=== PATIENT | male | born 1945 | race Caucasian/White ===

== ENCOUNTER 2022-05-29 16:37 | Inpatient (IN) | payer MEDICARE, SELFPAY ==
[2022-05-29] MEDS ORDERED: Vancomycin 1 GM/200 ML BAG ONE (17:26)
[2022-05-29] MEDS ORDERED: hydrALAZINE 20 MG/ML VIAL SLOW IVP PRN (19:28)
[2022-05-29] MEDS ORDERED: Electrolyte Replacement Protocol 1 EACH FS PRN (19:30)
[2022-05-29] MEDS ORDERED: Acetaminophen 325 MG TAB PO PRN (19:31)
[2022-05-29] MEDS ORDERED: Ondansetron PF 4 MG/2 ML Vial IVP PRN (19:31)
[2022-05-29] MEDS ORDERED: Ondansetron ODT 4 MG TAB PO PRN (19:31)
[2022-05-29 19:34] VITALS: BMI 28.5
[2022-05-29] MEDS ORDERED: Furosemide 40 MG/4 ML VIAL SLOW IVP SCH (19:45)
[2022-05-29] MEDS ORDERED: Vancomycin 1 GM in Premix Bag 1 BAG IVPB SCH (19:45)
[2022-05-29] MEDS: Pantoprazole 40 MG VIAL IVP SCH (20:10)
[2022-05-29] MEDS: Cefepime 1 GM in Sodium Chloride 0.9% 100 ML IVPB SCH (21:47)
[2022-05-29] MEDS ORDERED: tiZANidine HCl 4 MG TAB PO PRN (22:04)
[2022-05-29 23:19] LABS: HBSAg Index 0.35 S/CO (0-0.99); Hep B Surf Ag Non-Reactive S/CO (NonReactive); Hep C IgG Ab Non-Reactive (NonReactive); Hep C Index 0.13 S/CO (0-0.79)
[2022-05-29 23:20] LABS: HBCM Index 0.06 S/CO (0-0.79); Hep A IgM AB Non-Reactive (NonReactive); Hep A IgM S/CO 0.22 S/CO (0-0.79); Hepatitis B Core IgM Abs Non-Reactive (NonReactive)
[2022-05-29 23:21] LABS: Hemoglobin 9.5 g/dL (14.0-18.0)
[2022-05-30] MEDS ORDERED: Morphine 2 MG/ML VIAL SLOW IVP SCH (00:45)
[2022-05-30] MEDS ORDERED: Albumin 25% 25 GM/100 ML BOT IVPB SCH ×2 (01:30→13:00)
[2022-05-30 02:19] LABS: #Lymphocytes 1.1 thou/uL (1.20-3.40); #Monocytes 0.9 thou/uL (0.11-0.59); #Neutrophils 9.3 thou/uL (1.40-6.50); %Basophils 0.1 % (0.0-1.0); %Eosinophils 0.1 % (0.0-10.0); %Lymphocytes 9.3 % (21.0-51.0); %Monocytes 8.2 % (0.0-10.0); %Neutrophils 82.2 % (42.0-75.0); Hemoglobin 9.8 g/dL (14.0-18.0); Mean Corpuscular HGB CONC 32.8 g/dL (32.0-36.0); Mean Platelet Volume 8.1 fL (7.4-10.4); Platelet Count 113 thou/uL (130-400); RBC Distribution Width 12.3 % (11.5-14.5); White Blood Cell (WBC) Count 11.4 thou/uL (4.8-10.8)
[2022-05-30 02:35] LABS: Lactic Acid 3.7 mmol/L (0.5-2.2)
[2022-05-30 02:39] LABS: Magnesium 1.6 mg/dL (1.6-2.6)
[2022-05-30 02:51] LABS: ALT (SGPT) 13 U/L (8-55); AST (SGOT) 37 U/L (5-34); Albumin 2.4 g/dL (3.4-4.8); Alkaline Phosphatase 77 U/L (40-110); Anion Gap 15 mmol/L (10-20); BUN (Urea Nitrogen) 15 mg/dL (8.4-25.7); Bilirubin, Total 5.9 mg/dL (0.2-1.2); Calc. Creatinine Clearance 65 mL/min (70-130); Calcium 7.7 mg/dL (7.8-10.44); Carbon Dioxide 20 mmol/L (23-31); Chloride 99 mmol/L (98-107); Estimated GFR 56; Globulin 3.2 g/dL (2.4-3.5); Glucose 86 mg/dL (83-110); Magnesium 1.6 mg/dL (1.6-2.6); Potassium 3.3 mmol/L (3.5-5.1); Protein, Total 5.6 g/dL (5.8-8.1); Sodium 131 mmol/L (136-145)
[2022-05-30 03:08] LABS: INR-International Normal Ratio 1.9; Prothrombin Time 22.5 sec (12.0-14.7)
[2022-05-30 03:24] LABS: Band 33 % (5-11); Large Platelets SLIGHT; Lymphocytes 8 % (21-51); MDiff Complete? YES; Macrocytosis SLIGHT = 6-15 cells (100X) (0-5/hpf); Monocytes 3 % (0-10); Neutrophil 56 % (42-75); Ovalocytes SLIGHT = 2-5 cells (100X) (0-1/hpf); Platelet Morphology Comment Appears Decreased
[2022-05-30] MEDS ORDERED: Magnesium 2 GM/50 ML(in water) 2 GM in Premix Bag 1 BAG IVPB SCH (08:00)
[2022-05-30] MEDS: Furosemide 40 MG/4 ML VIAL SLOW IVP SCH (09:32)
[2022-05-30] MEDS: Potassium Chloride 20 MEQ in Premix Bag 1 BAG IVPB SCH ×2 (09:33→12:42)
[2022-05-30] MEDS: Cefepime 1 GM in Sodium Chloride 0.9% 100 ML IVPB SCH ×2 (09:33→20:11)
[2022-05-30] MEDS: Vancomycin 1 GM in Premix Bag 1 BAG IVPB SCH ×2 (09:34→20:19)
[2022-05-30] MEDS: Pantoprazole 40 MG VIAL IVP SCH ×2 (09:34→20:11)
[2022-05-30] MEDS: Albumin 25% 25 GM/100 ML BOT IVPB SCH ×3 (11:02→14:54)
[2022-05-30] MEDS: Midodrine HCl 5 MG TAB PO SCH (20:11)
[2022-05-31 04:56] LABS: #Eosinphils 0.3 thou/uL (0.0-0.7); #Lymphocytes 1.2 thou/uL (1.20-3.40); #Neutrophils 6.7 thou/uL (1.40-6.50); %Basophils 0.3 % (0.0-1.0); %Eosinophils 3.1 % (0.0-10.0); %Lymphocytes 12.8 % (21.0-51.0); %Monocytes 11.1 % (0.0-10.0); %Neutrophils 72.6 % (42.0-75.0); Hemoglobin 8.2 g/dL (14.0-18.0); MDiff Complete? YES; Macrocytosis SLIGHT = 6-15 cells (100X) (0-5/hpf); Mean Corpuscular HGB CONC 32.1 g/dL (32.0-36.0); Mean Corpuscular Hemoglobin 35.8 pg (27.0-31.0); Mean Platelet Volume 8.8 fL (7.4-10.4); Platelet Count 89 thou/uL (130-400); Platelet Morphology Comment Appears Decreased; RBC Distribution Width 12.6 % (11.5-14.5); White Blood Cell (WBC) Count 9.2 thou/uL (4.8-10.8)
[2022-05-31 06:02] LABS: ALT (SGPT) 12 U/L (8-55); AST (SGOT) 55 U/L (5-34); Albumin 2.5 g/dL (3.4-4.8); Alkaline Phosphatase 43 U/L (40-110); Anion Gap 13 mmol/L (10-20); BUN (Urea Nitrogen) 23 mg/dL (8.4-25.7); Bilirubin, Total 4.7 mg/dL (0.2-1.2); Calc. Creatinine Clearance 36 mL/min (70-130); Calcium 7.5 mg/dL (7.8-10.44); Carbon Dioxide 21 mmol/L (23-31); Chloride 101 mmol/L (98-107); Estimated GFR 28; Globulin 2.2 g/dL (2.4-3.5); Glucose 86 mg/dL (83-110); Potassium 3.7 mmol/L (3.5-5.1); Protein, Total 4.7 g/dL (5.8-8.1); Sodium 131 mmol/L (136-145)
[2022-05-31 08:50] LABS: Vancomycin, Trough 30.3 ug/mL
[2022-05-31] MEDS: Vancomycin 1 GM in Premix Bag 1 BAG IVPB SCH (09:21)
[2022-05-31] MEDS: Cefepime 1 GM in Sodium Chloride 0.9% 100 ML IVPB SCH ×2 (09:50→19:57)
[2022-05-31] MEDS: Pantoprazole 40 MG VIAL IVP SCH ×2 (09:51→19:58)
[2022-05-31] MEDS: Furosemide 40 MG/4 ML VIAL SLOW IVP SCH ×2 (09:51→09:54)
[2022-05-31] MEDS: Midodrine HCl 5 MG TAB PO SCH ×3 (09:51→19:58)
[2022-05-31] MEDS ORDERED: Sodium Chloride 0.9% 500 ML IV SCH (10:15)
[2022-05-31] MEDS ORDERED: Lidocaine 1% PF 5 ML VIAL ONE (10:40)
[2022-05-31] MEDS ORDERED: Sodium Bicarbonate 2.5 MEQ/5 ML VIAL ONE (10:40)
[2022-05-31] MEDS ORDERED: Phytonadione 10 MG/ML AMP SC SCH (11:15)
[2022-05-31] MEDS ORDERED: Vancomycin HCl 500 MG in Sodium Chloride 0.9% 100 ML IVPB SCH (11:30)
[2022-05-31 12:10] LABS: RBC Count-Automated (BF) 1819 /cu.mm; WBC/Nucleated-Auto (BF) 2297 /cu.mm
[2022-05-31 12:24] LABS: BF Color Yellow; Body Fluid Source Ascites Body Fluid; Clarity Hazy (Clear); Tube # EDTA
[2022-05-31 12:26] LABS: BF Segmented Neutrophils 46 %; Cell Count Non Hematic 37 %; Eosinophils 2 %; Lymphocytes 11 %
[2022-05-31] MEDS ORDERED: Octreotide Acetate 100 MCG/ML VIAL SC SCH (14:00)
[2022-05-31] MEDS ORDERED: Sodium Chloride 0.9% 1,000 ML IV SCH (16:00)
[2022-05-31] MEDS ORDERED: NOREPINEPHRINE 8 MG/250 ML-D5W 250 ML IVPB SCH (16:00)
[2022-05-31] MEDS ORDERED: Octreotide Acetate 50 MCG/ML AMP SC SCH (16:30)
[2022-05-31] MEDS: Albumin 25% 25 GM/100 ML BOT IVPB SCH (19:54)
[2022-05-31] MEDS: Octreotide Acetate 50 MCG/ML AMP SC SCH (21:22)
[2022-05-31 21:23] LABS: Bacteria/HPF 1+ HPF (None Seen); Bilirubin Negative (Negative); Blood, Urine 3+ (Negative); Clarity Extra Turbid (Clear); Glucose, Urine (Dipstick) Normal (Negative); Ketone, Urine Negative (Negative); Leukocyte 75 Leu/uL (Negative); Nitrite Negative (Negative); Protein, Urine (Dipstick) 100 mg/dL (Neg-Trace); Specific Gravity, Urine 1.012 (1.002-1.036); Squamous Epithelial None Seen HPF (0-3); Urobilinogen Normal mg/dL (Less than 2); pH, Urine 5.5 (5.0-9.0)
[2022-05-31 21:24] LABS: RBC/HPF Greater than 50 HPF (0-3); Urine Culture Reflex Yes Yes
[2022-05-31 21:52] LABS: Creatinine, Urine 110.14 mg/dL (63-166); Sodium, Urine 100 mmol/L (Not Available); Urea Nitrogen, Random Urine Less than 40 mg/dl
[2022-05-31 22:04] LABS: Protein, Urine Random Quant 371 mg/dL (1-14)
[2022-06-01] MEDS: Albumin 25% 25 GM/100 ML BOT IVPB SCH ×5 (00:06→22:40)
[2022-06-01 04:34] LABS: #Eosinphils 0.4 thou/uL (0.0-0.7); #Lymphocytes 1.3 thou/uL (1.20-3.40); %Basophils 0.1 % (0.0-1.0); %Eosinophils 4.4 % (0.0-10.0); %Lymphocytes 13.4 % (21.0-51.0); %Monocytes 10.6 % (0.0-10.0); %Neutrophils 71.4 % (42.0-75.0); Hemoglobin 8.2 g/dL (14.0-18.0); Mean Corpuscular HGB CONC 33.5 g/dL (32.0-36.0); Mean Corpuscular Hemoglobin 35.8 pg (27.0-31.0); Mean Platelet Volume 8.4 fL (7.4-10.4); Platelet Count 102 thou/uL (130-400); RBC Distribution Width 12.4 % (11.5-14.5); White Blood Cell (WBC) Count 9.8 thou/uL (4.8-10.8)
[2022-06-01 04:43] LABS: Anion Gap 15 mmol/L (10-20); BUN (Urea Nitrogen) 34 mg/dL (8.4-25.7); CRP (Inflammatory) 10.32 mg/dL (= or < 0.5); Calc. Creatinine Clearance 26 mL/min (70-130); Calcium 7.7 mg/dL (7.8-10.44); Carbon Dioxide 22 mmol/L (23-31); Chloride 97 mmol/L (98-107); Estimated GFR 20; Glucose 101 mg/dL (83-110); Potassium 3.8 mmol/L (3.5-5.1); Sodium 130 mmol/L (136-145)
[2022-06-01 04:45] LABS: Vancomycin, Random 25.1 ug/mL (See Comment)
[2022-06-01] MEDS: Octreotide Acetate 50 MCG/ML AMP SC SCH ×3 (05:14→22:26)
[2022-06-01] MEDS ORDERED: Lidocaine 1% PF 5 ML VIAL ONE (08:11)
[2022-06-01] MEDS ORDERED: PROPOFOL 200 MG/20 ML VIAL ONE (08:11)
[2022-06-01] MEDS ORDERED: ePHEDrine 50 MG/ML VIAL ONE (08:11)
[2022-06-01] MEDS: Pantoprazole 40 MG VIAL IVP SCH ×2 (10:10→21:21)
[2022-06-01] MEDS: Midodrine HCl 5 MG TAB PO SCH ×3 (10:10→21:20)
[2022-06-01] MEDS: Cefepime 1 GM in Sodium Chloride 0.9% 100 ML IVPB SCH (10:10)
[2022-06-02] MEDS ORDERED: Nitroglycerin 0.4 MG TAB (25 Tab Bottle) SL PRN (01:20)
[2022-06-02 01:44] LABS: Anion Gap 18 mmol/L (10-20); BUN (Urea Nitrogen) 43 mg/dL (8.4-25.7); Calc. Creatinine Clearance 22 mL/min (70-130); Calcium 7.6 mg/dL (7.8-10.44); Carbon Dioxide 18 mmol/L (23-31); Chloride 99 mmol/L (98-107); Estimated GFR 17; Glucose 92 mg/dL (83-110); Magnesium 2.1 mg/dL (1.6-2.6); Phosphorus 4.3 mg/dL (2.3-4.7); Sodium 131 mmol/L (136-145)
[2022-06-02 01:49] LABS: Troponin I 0.183 ng/mL (< 0.028)
[2022-06-02 05:04] LABS: ALT (SGPT) 12 U/L (8-55); AST (SGOT) 30 U/L (5-34); Albumin 3.1 g/dL (3.4-4.8); Alkaline Phosphatase 38 U/L (40-110); Anion Gap 18 mmol/L (10-20); BUN (Urea Nitrogen) 46 mg/dL (8.4-25.7); Bilirubin, Total 6.5 mg/dL (0.2-1.2); Calc. Creatinine Clearance 22 mL/min (70-130); Calcium 7.8 mg/dL (7.8-10.44); Carbon Dioxide 19 mmol/L (23-31); Chloride 99 mmol/L (98-107); Estimated GFR 16; Globulin 1.8 g/dL (2.4-3.5); Glucose 93 mg/dL (83-110); Iron 50 ug/dL (65-175); Iron Binding Capacity, Total 71 mcg/dL (261-462); Potassium 3.9 mmol/L (3.5-5.1); Protein, Total 4.9 g/dL (5.8-8.1); Sodium 132 mmol/L (136-145)
[2022-06-02] MEDS: Albumin 25% 25 GM/100 ML BOT IVPB SCH ×4 (05:43→23:55)
[2022-06-02] MEDS: Octreotide Acetate 100 MCG/ML VIAL SC SCH ×3 (06:44→21:22)
[2022-06-02] MEDS: Midodrine HCl 5 MG TAB PO SCH ×3 (08:32→21:23)
[2022-06-02] MEDS: Pantoprazole 40 MG VIAL IVP SCH ×2 (08:32→21:23)
[2022-06-02] MEDS: Cefepime 1 GM in Sodium Chloride 0.9% 100 ML IVPB SCH (08:32)
[2022-06-02] MEDS ORDERED: Albumin 25% 25 GM/100 ML BOT IVPB SCH (11:00)
[2022-06-02] MEDS ORDERED: Furosemide 40 MG/4 ML VIAL SLOW IVP SCH (11:00)
[2022-06-02] MEDS: Metoclopramide HCl 10 MG/2 ML VIAL IVP SCH ×3 (11:39→23:55)
[2022-06-03] MEDS: Octreotide Acetate 100 MCG/ML VIAL SC SCH ×2 (05:27→15:04)
[2022-06-03] MEDS: Albumin 25% 25 GM/100 ML BOT IVPB SCH (05:27)
[2022-06-03] MEDS: Metoclopramide HCl 10 MG/2 ML VIAL IVP SCH ×3 (05:27→16:36)
[2022-06-03 06:02] LABS: Prothrombin Time 22.9 sec (12.0-14.7)
[2022-06-03 06:03] LABS: PTT 44.9 sec (22.9-36.1)
[2022-06-03 06:04] LABS: ALT (SGPT) 14 U/L (8-55); AST (SGOT) 34 U/L (5-34); Albumin 3.5 g/dL (3.4-4.8); Alkaline Phosphatase 43 U/L (40-110); Anion Gap 20 mmol/L (10-20); BUN (Urea Nitrogen) 52 mg/dL (8.4-25.7); Bilirubin, Total 8.3 mg/dL (0.2-1.2); Calc. Creatinine Clearance 23 mL/min (70-130); Calcium 8.2 mg/dL (7.8-10.44); Carbon Dioxide 18 mmol/L (23-31); Chloride 100 mmol/L (98-107); Estimated GFR 17; Globulin 1.8 g/dL (2.4-3.5); Glucose 94 mg/dL (83-110); Potassium 3.9 mmol/L (3.5-5.1); Protein, Total 5.3 g/dL (5.8-8.1); Sodium 134 mmol/L (136-145)
[2022-06-03 07:30] LABS: Hemoglobin 8.7 g/dL (14.0-18.0); Mean Corpuscular HGB CONC 32.9 g/dL (32.0-36.0); Mean Corpuscular Hemoglobin 36.2 pg (27.0-31.0); Mean Platelet Volume 8.1 fL (7.4-10.4); Platelet Count 117 thou/uL (130-400); RBC Distribution Width 12.5 % (11.5-14.5); White Blood Cell (WBC) Count 10.8 thou/uL (4.8-10.8)
[2022-06-03 07:39] LABS: #Basophils 0.1 thou/uL (0.0-0.2); #Eosinphils 0.3 thou/uL (0.0-0.7); #Lymphocytes 1.3 thou/uL (1.20-3.40); #Monocytes 1.2 thou/uL (0.11-0.59); %Basophils 0.5 % (0.0-1.0); %Eosinophils 2.8 % (0.0-10.0); %Lymphocytes 12.2 % (21.0-51.0); %Monocytes 11.1 % (0.0-10.0); %Neutrophils 73.4 % (42.0-75.0)
[2022-06-03 08:39] LABS: Burr Cells SLIGHT = 2-5 cells (100X) (0-1/hpf); MDiff Complete? YES; Macrocytosis SLIGHT = 6-15 cells (100X) (0-5/hpf); Platelet Morphology Comment Appears Decreased; Polychromasia SLIGHT = 2-3 cells (100X) (0-2/hpf)
[2022-06-03] MEDS: Sodium Bicarbonate Tab 325 MG TAB PO SCH ×3 (09:25→15:05)
[2022-06-03] MEDS: Cefepime 1 GM in Sodium Chloride 0.9% 100 ML IVPB SCH (09:25)
[2022-06-03] MEDS: Midodrine HCl 5 MG TAB PO SCH ×3 (09:25→15:05)
[2022-06-03] MEDS: Pantoprazole 40 MG VIAL IVP SCH (09:26)
[2022-06-03] MEDS ORDERED: Furosemide 40 MG/4 ML VIAL SLOW IVP SCH (09:30)
[2022-06-03] MEDS ORDERED: Albumin 25% 25 GM/100 ML BOT IVPB SCH ×2 (12:00→18:00)
[2022-06-03] MEDS ORDERED: Piperacillin/Tazobactam 3.375 GM in Sodium Chloride 0.9% 100 ML IVPB SCH ×3 (12:00→22:00)
[2022-06-03 12:40] VITALS: BP 114/57
[2022-06-03] MEDS ORDERED: Furosemide 100 MG/10 ML VIAL SLOW IVP SCH ×2 (14:00)
[2022-06-03] MEDS ORDERED: Sodium Chloride 0.9% 500 ML IV SCH (15:15)
[2022-06-03 16:38] VITALS: TEMP 97.8
== END 2022-06-03 18:42 | disposition hospice, inpatient (51) | DRG 871 ==
LOC: ERS 16:37 → SURG B 17:36 → 2NO 05-30 03:47 → MSONC 06-02 16:34 → IMCU/EMU 06-03 15:55
PROVIDERS: ADMIT Internal Medicine; ATTEND Internal Medicine
PROC: 3E03329 Introduction of Other Anti-infective into Peripheral Vein, Percutaneous Approach (ICD-10-PCS; 2022-05-29)
PROC: 30233J1 Transfusion of Nonautologous Serum Albumin into Peripheral Vein, Percutaneous Approach (ICD-10-PCS; 2022-05-30)
PROC: 0W9G3ZZ Drainage of Peritoneal Cavity, Percutaneous Approach (ICD-10-PCS; principal; 2022-05-31)
PROC: 30233K1 Transfusion of Nonautologous Frozen Plasma into Peripheral Vein, Percutaneous Approach (ICD-10-PCS; 2022-05-31)
PROC: 0DJ08ZZ Inspection of Upper Intestinal Tract, Via Natural or Artificial Opening Endoscopic (ICD-10-PCS; 2022-06-01)
DX: A41.9 Sepsis, unspecified organism (principal); I85.11 Secondary esophageal varices with bleeding; K65.2 Spontaneous bacterial peritonitis; R57.1 Hypovolemic shock; K76.7 Hepatorenal syndrome; J18.9 Pneumonia, unspecified organism; E87.1 Hypo-osmolality and hyponatremia; N17.9 Acute kidney failure, unspecified; K76.6 Portal hypertension; I10 Essential (primary) hypertension; Z20.822 Contact with and (suspected) exposure to COVID-19; E87.6 Hypokalemia; K70.31 Alcoholic cirrhosis of liver with ascites; D63.8 Anemia in other chronic diseases classified elsewhere; F10.20 Alcohol dependence, uncomplicated; K21.00 Gastro-esophageal reflux disease with esophagitis, without bleeding; K31.89 Other diseases of stomach and duodenum; K42.9 Umbilical hernia without obstruction or gangrene; K72.90 Hepatic failure, unspecified without coma; Z66 Do not resuscitate; Z79.899 Other long term (current) drug therapy
CPT/HCPCS: 36415; 36430; 49083; 71045; 76700; 80048; 80053; 80074; 80202; 81001; 82042; 82105; 82140; 82570; 83516; 83540; 83550; 83605; 83735; 84100; 84156; 84300; 84484; 84540; 85025; 85060; 85610; 85730; 86015; 86038; 86140; 86225; 86850; 86900; 86901; 87086; 89051; 93005; 93010; 93306; 94640; 96365; C9113; J0692; J1940; J2270; J2354; J2543; J2704; J2765; J3370; J3430; J3475; J3480; J3490; J7030; J7620; P9047; P9059

== ENCOUNTER 2022-06-03 18:45 | Inpatient (IN) | payer MEDICARE, OTHER ==
[2022-06-03] MEDS ORDERED: Ondansetron PF 4 MG/2 ML Vial IVP PRN (19:00)
[2022-06-03] MEDS ORDERED: Scopolamine 1.5 mg/72 hour Patch TOP PRN (19:00)
[2022-06-03] MEDS ORDERED: Ondansetron ODT 4 MG TAB PO PRN (19:00)
[2022-06-03] MEDS ORDERED: Bisacodyl 10 MG SUPP PR PRN (19:03)
[2022-06-03] MEDS ORDERED: Midazolam HCl 2 mg/2 ml Vial SLOW IVP PRN (19:32)
[2022-06-03] MEDS: Morphine 2 MG/ML VIAL SLOW IVP SCH (21:18)
[2022-06-04] MEDS: Morphine 2 MG/ML VIAL SLOW IVP SCH ×6 (01:10→20:32)
[2022-06-04 04:40] VITALS: BMI 23.4
[2022-06-04] MEDS ORDERED: Morphine 2 MG/ML VIAL SLOW IVP PRN (16:17)
[2022-06-04] MEDS ORDERED: Haloperidol Lactate 5 MG/ML VIAL SLOW IVP PRN (16:18)
[2022-06-05] MEDS: Morphine 2 MG/ML VIAL SLOW IVP SCH ×6 (00:54→21:42)
[2022-06-06] MEDS: Morphine 2 MG/ML VIAL SLOW IVP SCH ×6 (01:55→21:20)
[2022-06-07] MEDS: Morphine 2 MG/ML VIAL SLOW IVP SCH ×6 (01:24→21:13)
[2022-06-08] MEDS: Morphine 2 MG/ML VIAL SLOW IVP SCH ×4 (01:02→12:35)
[2022-06-08 08:41] VITALS: BP 146/68; TEMP 97.5
== END 2022-06-08 13:04 | disposition hospice, home (50) | DRG 951 ==
LOC: IMCU/EMU 18:45 → SJJU 23:52
PROVIDERS: ADMIT Family Medicine; ATTEND Family Medicine
DX: Z51.5 Encounter for palliative care (principal); A41.9 Sepsis, unspecified organism; K72.90 Hepatic failure, unspecified without coma; K70.31 Alcoholic cirrhosis of liver with ascites; F10.10 Alcohol abuse, uncomplicated; I10 Essential (primary) hypertension; Z60.2 Problems related to living alone; D64.9 Anemia, unspecified; E87.6 Hypokalemia; Z79.891 Long term (current) use of opiate analgesic; Z71.41 Alcohol abuse counseling and surveillance of alcoholic; Z98.890 Other specified postprocedural states
CPT/HCPCS: J2270